=== PATIENT | male | born 1990 | race Caucasian/White ===

== ENCOUNTER 2016-09-12 16:57 | Emergency (ER) | payer BC, OTHER ==
[2016-09-12 19:49] LABS: BASO % 0.7 % (0.0-1.0); EOS # 0.2 K/mm3 (0.0-0.50); EOS % 2.2 % (0.0-3.0); LARGE UNSTAINED CELL # 0.1 K/mm3 (0.0-0.4); LARGE UNSTAINED CELL % 1.1 % (0.0-4.0); LYMPH # 1.9 K/mm3 (1.5-6.5); LYMPH % 25.8 % (24.0-44.0); MEAN CORPUSCULAR HEMOGLOBIN 31.2 pg (27.0-33.0); MEAN CORPUSCULAR HGB CONC 34.9 g/dl (32.0-36.5); MEAN CORPUSCULAR VOLUME 89.4 fl (80.0-96.0); MONO # 0.4 K/mm3 (0.0-0.8); MONO % 5.5 % (0.0-5.0); NEUTROPHILS # 4.5 K/mm3 (1.8-7.7); NEUTROPHILS % 64.6 % (36.0-66.0); PLATELET COUNT, AUTOMATED 172 k/mm3 (150-450); RED CELL DISTRIBUTION WIDTH 12.3 % (11.5-14.5)
[2016-09-12 19:53] LABS: ALBUMIN 3.9 GM/DL (3.2-5.2); ALBUMIN/GLOBULIN RATIO 1.08 (1.00-1.93); ALKALINE PHOSPHATASE 57 U/L (45-117); ALT/SGPT 62 U/L (12-78); ANION GAP 7 MEQ/L (8-16); AST/SGOT 33 U/L (15-37); BILIRUBIN,TOTAL 0.5 MG/DL (0.2-1.0); BLOOD UREA NITROGEN 13 MG/DL (7-18); CALCIUM LEVEL 8.9 MG/DL (8.5-10.1); CARBON DIOXIDE LEVEL 29 MEQ/L (21-32); CHLORIDE LEVEL 106 MEQ/L (98-107); CREATININE FOR GFR 1.03 MG/DL (0.70-1.30); GLOMERULAR FILTRATION RATE > 60.0 (>60); GLUCOSE, FASTING 102 MG/DL (70-105); POTASSIUM SERUM 4.5 MEQ/L (3.5-5.1); SODIUM LEVEL 142 MEQ/L (136-145); TOTAL PROTEIN 7.5 GM/DL (6.4-8.2)
[2016-09-12 20:08] LABS: CONTROL LINE INT CTR LINE PRESENT
--- NOTE | 2016-09-12 20:34 | EDDOCDS ---
Physician Documentation [facility] Name: Marcus Hayes Age: 26 yrs Sex: Male : 1990 Arrival Date: 09/12/2016 Time: 16:57 Bed I5 / M5 Private MD: NO PRIMARY PHYSICIAN, . Disposition: 09/12/16 20:22 Discharged to Home/Self Care. Impression: Contact with and (suspected) exposure to potentially hazardous body fluids. - Condition is Stable. - Discharge Instructions: Body Fluid Exposure Information. - Medication Reconciliation, Local Pharmacy Hours form. - Follow up: Employee Health Office, .; When: Tomorrow; Reason: Further diagnostic work-up, Recheck today's complaints, Continuance of care. - Problem is new. - Symptoms are unchanged. Historical: - Allergies: no known allergies; - Home Meds: 1. none - PMHx: none; - PSHx: none; - Social history: Smoking status: Patient/guardian denies using No barriers to communication noted, The patient speaks fluent Andorran. - Family history: Not pertinent. - : The pt / caregiver states he / she is not on anticoagulants. Home medication list is obtained from the patient. - Exposure Risk Screening:: None identified. - Tetanus status: less than 5 years. Vital Signs: 09/12 16:59 BP 135 / 72; Pulse 106; Resp 18 S; Temp 98.6(O); Pulse Ox 98% on R/A; Weight 136.08 kg gr2 / 300.01 lbs (R); Height 6 ft. 3 in. 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 18:55 CBC with Diff Ordered. EDMS 18:56 Complete Comphrensive Metabolic Ordered. EDMS 18:56 HIV EXPOSED(ONLY WITH PEP SET) Ordered. EDMS 18:56 Hepatitis B Surface Antibody Ordered. EDMS 18:56 Hepatitis B Surface Antigen Ordered. 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 19:16 Financial registration complete. gjb 19:22 [facility] Payment Agreement was scanned into [employer] and attached to record. gjb 19:24 HEPATITIS C ANTIBODY Ordered. EDMS 20:21 CBC with Diff Reviewed. btw 20:21 Complete Comphrensive Metabolic Reviewed. btw 20:21 HIV EXPOSED(ONLY WITH PEP SET) Reviewed. btw Signatures: Dispatcher [employer] EDMS Suzette Desir, RN RN Td Godoy PA PA btw Gissel Soloomn RN RN Sienna NayakRN RN Jayde Sosa Gabriela gjb The chart was reviewed and I authenticate all verbal orders and agree with the evaluation and treatment provided.Corrections: (The following items were deleted from the chart) 19:24 18:56 HEPATITIS C ANTIBODY+LAB ordered. EDMS EDMS Attachments: 19:22 [facility] Payment Agreement gjb MTDD
--- NOTE | 2016-09-12 20:34 | EDDOCDS ---
Nurse's Notes [facility] Name: Marcus Hayes Age: 26 yrs Sex: Male : 1990 Arrival Date: 09/12/2016 Time: 16:57 Bed I5 / M5 Private MD: NO PRIMARY PHYSICIAN, . 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 Alligator forceps was from ENT out pt clinic. Adult Sepsis Screening: The patient does not have new or worsening altered mentation. Patient's respiratory rate is less than 22. Systolic blood pressure is greater than 100. Patient has a qSOFA score of 0- Negative Sepsis Screen. Suicide/Homicide risk assessment- the patient denies having any suicidal and/or homicidal ideations and does not present with any other emotional, behavioral or mental health complaints. 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 Transition of care: patient was not received from another setting of care. 17:11 Acuity: JEN Level 3 dls 17:11 Method Of Arrival: Walkin/Carried/Asstd dls Triage Assessment: 17:15 General: Appears in no apparent distress, obese, well developed, well nourished, dls Behavior is cooperative. Pain: Denies pain. HIV screening NA for this visit Offered previously. Historical: - Allergies: no known allergies; - Home Meds: 1. none - PMHx: none; - PSHx: none; - Social history: Smoking status: Patient/guardian denies using No barriers to communication noted, The patient speaks fluent Kenyan. - Family history: Not pertinent. - : The pt / caregiver states he / she is not on anticoagulants. Home medication list is obtained from the patient. - Exposure Risk Screening:: None identified. - Tetanus status: less than 5 years. Screenin:31 Screening information is obtained from the patient. Fall risk: No risks identified. jc4 Assistance ADL's: requires no assistance with activities of daily living. Abuse/DV Screen: The patient / caregiver reports he/she is: not in a situation that causes fear, pain or injury. Nutritional screening: No deficits noted. Advance Directives: Currently, there is no health care proxy. There is no active DNR order. There is no living will. There is no Power of Public Health Technologist. home support is adequate. Assessment: 17:32 General: Appears in no apparent distress, Behavior is cooperative, pleasant. Pain: jc4 Denies pain. Neurological: Level of Consciousness is awake, alert, Oriented to person, place, time. Respiratory: Airway is patent Respiratory effort is even, unlabored, Respiratory pattern is regular, symmetrical. Derm: Skin is pink, warm & dry. Injury Description: Puncture sustained to dorsal aspect of middle phalanx of right middle finger is superficial, was sustained 30-60 minutes ago. Pt states has thoroughly scrubbed hands with soap and water in [employer] in this facility. 18:32 General: Appears in no apparent distress, Behavior is appropriate for age, cooperative. dsf Pain: Denies pain. Neurological: Level of Consciousness is awake, alert. Cardiovascular: Capillary refill < 3 seconds. Respiratory: Airway is patent Respiratory effort is even, unlabored, Respiratory pattern is regular, symmetrical. Derm: Skin is pink, warm & dry. 20:30 Adult Sepsis Screening: The patient does not have new or worsening altered mentation. dsf Patient's respiratory rate is less than 22. Systolic blood pressure is greater than 100. Patient has a qSOFA score of 0- Negative Sepsis Screen. General: Appears in no apparent distress, Behavior is appropriate for age, cooperative. Neurological: Level of Consciousness is awake, alert. Cardiovascular: Capillary refill < 3 seconds. Respiratory: Airway is patent Respiratory effort is even, unlabored, Respiratory pattern is regular, symmetrical. Derm: Skin is pink, warm & dry. Vital Signs: 16:59 BP 135 / 72; Pulse 106; Resp 18 S; Temp 98.6(O); Pulse Ox 98% on R/A; Weight 136.08 kg gr2 (R); Height 6 ft. 3 in. (190.50 cm) (R); Pain 0/10; 19:34 BP 141 / 95; Pulse 75; Resp 20; Temp 98.9; Pulse Ox 100% ; ajs 20:25 BP 142 / 67; Pulse 107; Resp 18; Temp 99.3; Pulse Ox 97% ; Pain 0/10; ajs 16:59 Body Mass Index 37.50 (136.08 kg, 190.50 cm) gr2 Vitals: 16:59 Log In Time: September 12, 2016 at 16:59. gr2 ED Course: 16:58 Patient visited by Daljit Conner. gr2 16:58 Patient moved to Waiting gr2 16:59 NO PRIMARY PHYSICIAN, . is Private Physician. gr2 17:01 Patient visited by Daljit Conner. gr2 17:01 Patient moved to Pre RCE gr2 17:14 Triage Initiated dls 17:22 Geri Zambrano,RN is Primary Nurse. kcs 17:22 Gissel Solomon, SUNNY is Primary Nurse. kcs 17:22 Patient moved to I5 / M5 kcs 17:30 The patient / caregiver is instructed regarding the plan of care and ED course. jc4 17:31 Patient visited by Gissel Solomon RN. jc4 18:47 Td Brandt PA is PHCP. btw 18:47 Allan Ramirez MD is Attending Physician. btw 18:47 Patient visited by Td Brandt PA. btw 19:19 NOTIFIED NURSING CLEAT LAYER LIZETT OF PT IN ER WITH EXPOSURE, ADVISED PT STATES THE ajs INITIALS ON THE PACKAGE WERE TZ FROM RM 10 OF THE ENT CLINIC. 19:19 CBC with Diff Sent. ajs 19:19 Complete Comphrensive Metabolic Sent. ajs 19:19 HIV EXPOSED(ONLY WITH PEP SET) Sent. ajs 19:19 Hepatitis B Surface Antibody Sent. ajs 19:19 Hepatitis B Surface Antigen Sent. ajs 19:20 Patient visited by Jayde Garcia. ajs 19:22 [facility] Payment Agreement was scanned into [employer] and attached to record. gjb 19:35 Patient visited by Jayde Garcia. ajs 19:35 HEPATITIS C ANTIBODY Sent. ajs 19:49 Patient name changed from Marcus\S\\S\Abigail\S\ to Marcus\S\ \S\Abigail. EDMS 20:21 Employee Health Office, . is Referral Physician. btw 20:25 Patient visited by Jayde Garcia. ajs 20:32 No IV's were initiated during this patient's visit. No procedures done that require dsf assistance. Order Results: Lab Order: CBC with Diff; SPEC'M 02/13/17 19:16 Test: WHITE BLOOD COUNT; Value: 7.0; Range: 4.0-10.0; Units: K/mm3; Status: F Test: RED BLOOD COUNT; Value: 5.16; Range: 4.30-6.10; Units: M/mm3; Status: F Test: HEMOGLOBIN; Value: 16.1; Range: 14.0-18.0; Units: g/dl; Status: F Test: HEMATOCRIT; Value: 46.2; Range: 42.0-52.0; Units: %; Status: F Test: MEAN CORPUSCULAR VOLUME; Value: 89.4; Range: 80.0-96.0; Units: fl; Status: F Test: MEAN CORPUSCULAR HEMOGLOBIN; Value: 31.2; Range: 27.0-33.0; Units: pg; Status: F Test: MEAN CORPUSCULAR HGB CONC; Value: 34.9; Range: 32.0-36.5; Units: g/dl; Status: F Test: RED CELL DISTRIBUTION WIDTH; Value: 12.3; Range: 11.5-14.5; Units: %; Status: F Test: PLATELET COUNT, AUTOMATED; Value: 172; Range: 150-450; Units: k/mm3; Status: F Test: NEUTROPHILS %; Value: 64.6; Range: 36.0-66.0; Units: %; Status: F Test: LYMPH %; Value: 25.8; Range: 24.0-44.0; Units: %; Status: F Test: MONO %; Value: 5.5; Range: 0.0-5.0; Abnormal: Above high normal; Units: %; Status: F Test: EOS %; Value: 2.2; Range: 0.0-3.0; Units: %; Status: F Test: BASO %; Value: 0.7; Range: 0.0-1.0; Units: %; Status: F Test: LARGE UNSTAINED CELL %; Value: 1.1; Range: 0.0-4.0; Units: %; Status: F Test: NEUTROPHILS #; Value: 4.5; Range: 1.8-7.7; Units: K/mm3; Status: F Test: LYMPH #; Value: 1.9; Range: 1.5-6.5; Units: K/mm3; Status: F Test: MONO #; Value: 0.4; Range: 0.0-0.8; Units: K/mm3; Status: F Test: EOS #; Value: 0.2; Range: 0.0-0.50; Units: K/mm3; Status: F Test: BASO #; Value: 0.0; Range: 0.0-0.2; Units: K/mm3; Status: F Test: LARGE UNSTAINED CELL #; Value: 0.1; Range: 0.0-0.4; Units: K/mm3; Status: F Lab Order: Complete Comphrensive Metabolic; SPEC'M 09/12/16 19:16 Test: GLUCOSE, FASTING; Value: 102; Range: 70-105; Units: MG/DL; Status: F Test: BLOOD UREA NITROGEN; Value: 13; Range: 7-18; Units: MG/DL; Status: F Test: CREATININE FOR GFR; Value: 1.03; Range: 0.70-1.30; Units: MG/DL; Status: F Test: GLOMERULAR FILTRATION RATE; Value: > 60.0; Range: >60; Status: F Test: SODIUM LEVEL; Value: 142; Range: 136-145; Units: MEQ/L; Status: F Test: POTASSIUM SERUM; Value: 4.5; Range: 3.5-5.1; Units: MEQ/L; Status: F Test: CHLORIDE LEVEL; Value: 106; Range: 98-107; Units: MEQ/L; Status: F Test: CARBON DIOXIDE LEVEL; Value: 29; Range: 21-32; Units: MEQ/L; Status: F Test: ANION GAP; Value: 7; Range: 8-16; Abnormal: Below low normal; Units: MEQ/L; Status: F Test: CALCIUM LEVEL; Value: 8.9; Range: 8.5-10.1; Units: MG/DL; Status: F Test: AST/SGOT; Value: 33; Range: 15-37; Units: U/L; Status: F Test: ALT/SGPT; Value: 62; Range: 12-78; Units: U/L; Status: F Test: ALKALINE PHOSPHATASE; Value: 57; Range: 45-117; Units: U/L; Status: F Test: BILIRUBIN,TOTAL; Value: 0.5; Range: 0.2-1.0; Units: MG/DL; Status: F Test: TOTAL PROTEIN; Value: 7.5; Range: 6.4-8.2; Units: GM/DL; Status: F Test: ALBUMIN; Value: 3.9; Range: 3.2-5.2; Units: GM/DL; Status: F Test: ALBUMIN/GLOBULIN RATIO; Value: 1.08; Range: 1.00-1.93; Status: F Test Note: ; Units are mL/min/1.73 m2 Chronic Kidney Disease Staging per NKF: Stage I & II GFR >=60 Normal to Mildly Decreased Stage III GFR 30-59 Moderately Decreased Stage IV GFR 15-29 Severely Decreased Stage V GFR <15 Very Little GFR Left ESRD GFR <15 on ACQUISITION EDITOR Lab Order: HIV EXPOSED(ONLY WITH PEP SET); SPEC' 09/12/16 19:17 Test: HIVEXPOSED0; Value: NEGATIVE; Range: NEGATIVE; Status: F Test: HIV EXPOSED PT 1; Value: NEGATIVE; Range: NEGATIVE; Status: F Test Note: ; This test was performed utilizing a immunochromatographic sandwich principle technique. Sensitivity of the assay is 100%. Specificity of the assay is 99.7%. Lab Order: Hepatitis B Surface Antibody; SPEC'M 09/12/16 19:17 Test: HEPATITIS B SURFACE ANTIBODY; Range: POSITIVE; Status: I Lab Order: Hepatitis B Surface Antigen; [facility]' 09/12/16 19:17 Test: HEPATITIS B SURFACE ANTIGEN; Range: NEGATIVE; Status: I Lab Order: HEPATITIS C ANTIBODY; [facility]' 09/12/16 19:17 Test: HEPATITIS C VIRUS YESI INDEX; Range: <0.8; Units: INDEX; Status: I Outcome: 20:22 Discharge ordered by Provider. btw 20:32 Discharge Assessment: Patient awake, alert and oriented x 3. No cognitive and/or dsf functional deficits noted. Patient verbalized understanding of disposition instructions. patient administered narcotics - no. The following High Risk Discharge criteria are identified: None. Discharged to home ambulatory. Condition: stable. Discharge instructions given to patient, Instructed on discharge instructions, follow up and referral plans. Demonstrated understanding of instructions, Pt was receptive of discharge instructions/ teaching. No special radiology studies were completed. Property sent home with patient. 20:32 Patient left the ED. dsf Signatures: Dispatcher [employer] Leonila Mclean RN RN Suzette Dennis RN RN Td Godoy PA PA btw Castle, Jennifer, RN RN jc4 Sienna Elena RN RN Jayde Sosa [place] 2 June [place]antes Corrections: (The following items were deleted from the chart) 19:24 19:19 HEPATITIS C ANTIBODY+LAB sent. raquel RODRIGUEZ MTDD
[2016-09-14 09:52] LABS: HEPATITIS B SURFACE ANTIBODY NEGATIVE (POSITIVE)
--- NOTE | 2016-09-14 21:33 | EDDOCDS ---
Nurse's Notes [facility] Name: Marcus Hayes Age: 26 yrs Sex: Male : 1990 Arrival Date: 09/12/2016 Time: 16:57 Bed I5 / M5 Private MD: NO PRIMARY PHYSICIAN, . 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 Alligator forceps was from ENT out pt clinic. Adult Sepsis Screening: The patient does not have new or worsening altered mentation. Patient's respiratory rate is less than 22. Systolic blood pressure is greater than 100. Patient has a qSOFA score of 0- Negative Sepsis Screen. Suicide/Homicide risk assessment- the patient denies having any suicidal and/or homicidal ideations and does not present with any other emotional, behavioral or mental health complaints. Status: Patient is not a cdl service technician or dependent. Transition of care: patient was not received from another setting of care. 17:11 Acuity: JEN Level 3 dls 17:11 Method Of Arrival: Walkin/Carried/Asstd dls Triage Assessment: 17:15 General: Appears in no apparent distress, obese, well developed, well nourished, dls Behavior is cooperative. Pain: Denies pain. HIV screening NA for this visit Offered previously. Historical: - Allergies: no known allergies; - Home Meds: 1. none - PMHx: none; - PSHx: none; - Social history: Smoking status: Patient/guardian denies using No barriers to communication noted, The patient speaks fluent Macedonian. - Family history: Not pertinent. - : The pt / caregiver states he / she is not on anticoagulants. Home medication list is obtained from the patient. - Exposure Risk Screening:: None identified. - Tetanus status: less than 5 years. Screenin:31 Screening information is obtained from the patient. Fall risk: No risks identified. jc4 Assistance ADL's: requires no assistance with activities of daily living. Abuse/DV Screen: The patient / caregiver reports he/she is: not in a situation that causes fear, pain or injury. Nutritional screening: No deficits noted. Advance Directives: Currently, there is no health care proxy. There is no active DNR order. There is no living will. There is no Power of [employer] Attendant. home support is adequate. Assessment: 17:32 General: Appears in no apparent distress, Behavior is cooperative, pleasant. Pain: jc4 Denies pain. Neurological: Level of Consciousness is awake, alert, Oriented to person, place, time. Respiratory: Airway is patent Respiratory effort is even, unlabored, Respiratory pattern is regular, symmetrical. Derm: Skin is pink, warm & dry. Injury Description: Puncture sustained to dorsal aspect of middle phalanx of right middle finger is superficial, was sustained 30-60 minutes ago. Pt states has thoroughly scrubbed hands with soap and water in [employer] in this facility. 18:32 General: Appears in no apparent distress, Behavior is appropriate for age, cooperative. dsf Pain: Denies pain. Neurological: Level of Consciousness is awake, alert. Cardiovascular: Capillary refill < 3 seconds. Respiratory: Airway is patent Respiratory effort is even, unlabored, Respiratory pattern is regular, symmetrical. Derm: Skin is pink, warm & dry. 20:30 Adult Sepsis Screening: The patient does not have new or worsening altered mentation. dsf Patient's respiratory rate is less than 22. Systolic blood pressure is greater than 100. Patient has a qSOFA score of 0- Negative Sepsis Screen. General: Appears in no apparent distress, Behavior is appropriate for age, cooperative. Neurological: Level of Consciousness is awake, alert. Cardiovascular: Capillary refill < 3 seconds. Respiratory: Airway is patent Respiratory effort is even, unlabored, Respiratory pattern is regular, symmetrical. Derm: Skin is pink, warm & dry. Vital Signs: 16:59 BP 135 / 72; Pulse 106; Resp 18 S; Temp 98.6(O); Pulse Ox 98% on R/A; Weight 136.08 kg gr2 (R); Height 6 ft. 3 in. (190.50 cm) (R); Pain 0/10; 19:34 BP 141 / 95; Pulse 75; Resp 20; Temp 98.9; Pulse Ox 100% ; ajs 20:25 BP 142 / 67; Pulse 107; Resp 18; Temp 99.3; Pulse Ox 97% ; Pain 0/10; ajs 16:59 Body Mass Index 37.50 (136.08 kg, 190.50 cm) gr2 Vitals: 16:59 Log In Time: September 12, 2016 at 16:59. gr2 ED Course: 16:58 Patient visited by Daljit Conner. gr2 16:58 Patient moved to Waiting gr2 16:59 NO PRIMARY PHYSICIAN, . is Private Physician. gr2 17:01 Patient visited by Daljit Conner. gr2 17:01 Patient moved to Pre RCE gr2 17:14 Triage Initiated dls 17:22 Geri Zambrano,RN is Primary Nurse. kcs 17:22 Gissel Solomon, SUNNY is Primary Nurse. kcs 17:22 Patient moved to I5 / M5 kcs 17:30 The patient / caregiver is instructed regarding the plan of care and ED course. jc4 17:31 Patient visited by Gissel Solomon RN. jc4 18:47 Td Brandt PA is PHCP. btw 18:47 Allan Ramirez MD is Attending Physician. btw 18:47 Patient visited by Td Brandt PA. btw 19:19 NOTIFIED NURSING PARTS SALES MANAGER LIZETT OF PT IN ER WITH EXPOSURE, ADVISED PT STATES THE ajs INITIALS ON THE PACKAGE WERE TZ FROM RM 10 OF THE ENT CLINIC. 19:19 CBC with Diff Sent. ajs 19:19 Complete Comphrensive Metabolic Sent. ajs 19:19 HIV EXPOSED(ONLY WITH PEP SET) Sent. ajs 19:19 Hepatitis B Surface Antibody Sent. ajs 19:19 Hepatitis B Surface Antigen Sent. ajs 19:20 Patient visited by Jayde Garcia. ajs 19:22 [facility] Payment Agreement was scanned into [employer] and attached to record. gjb 19:35 Patient visited by Jayde Garcia. ajs 19:35 HEPATITIS C ANTIBODY Sent. ajs 19:49 Patient name changed from Marcus\S\\S\Abigail\S\ to Marcus\S\ \S\Abigail. EDMS 20:21 Employee Health Office, . is Referral Physician. btw 20:25 Patient visited by Jayde Garcia. ajs 20:32 No IV's were initiated during this patient's visit. No procedures done that require dsf assistance. 09/13 09:00 T-Sheet-- Draft Copy was scanned into [employer] and attached to record. gb 09:00 Other: PEP was scanned into [employer] and attached to record. gb Order Results: Lab Order: CBC with Diff; SPEC'M 09/12/16 19:16 Test: WHITE BLOOD COUNT; Value: 7.0; Range: 4.0-10.0; Units: K/mm3; Status: F Test: RED BLOOD COUNT; Value: 5.16; Range: 4.30-6.10; Units: M/mm3; Status: F Test: HEMOGLOBIN; Value: 16.1; Range: 14.0-18.0; Units: g/dl; Status: F Test: HEMATOCRIT; Value: 46.2; Range: 42.0-52.0; Units: %; Status: F Test: MEAN CORPUSCULAR VOLUME; Value: 89.4; Range: 80.0-96.0; Units: fl; Status: F Test: MEAN CORPUSCULAR HEMOGLOBIN; Value: 31.2; Range: 27.0-33.0; Units: pg; Status: F Test: MEAN CORPUSCULAR HGB CONC; Value: 34.9; Range: 32.0-36.5; Units: g/dl; Status: F Test: RED CELL DISTRIBUTION WIDTH; Value: 12.3; Range: 11.5-14.5; Units: %; Status: F Test: PLATELET COUNT, AUTOMATED; Value: 172; Range: 150-450; Units: k/mm3; Status: F Test: NEUTROPHILS %; Value: 64.6; Range: 36.0-66.0; Units: %; Status: F Test: LYMPH %; Value: 25.8; Range: 24.0-44.0; Units: %; Status: F Test: MONO %; Value: 5.5; Range: 0.0-5.0; Abnormal: Above high normal; Units: %; Status: F Test: EOS %; Value: 2.2; Range: 0.0-3.0; Units: %; Status: F Test: BASO %; Value: 0.7; Range: 0.0-1.0; Units: %; Status: F Test: LARGE UNSTAINED CELL %; Value: 1.1; Range: 0.0-4.0; Units: %; Status: F Test: NEUTROPHILS #; Value: 4.5; Range: 1.8-7.7; Units: K/mm3; Status: F Test: LYMPH #; Value: 1.9; Range: 1.5-6.5; Units: K/mm3; Status: F Test: MONO #; Value: 0.4; Range: 0.0-0.8; Units: K/mm3; Status: F Test: EOS #; Value: 0.2; Range: 0.0-0.50; Units: K/mm3; Status: F Test: BASO #; Value: 0.0; Range: 0.0-0.2; Units: K/mm3; Status: F Test: LARGE UNSTAINED CELL #; Value: 0.1; Range: 0.0-0.4; Units: K/mm3; Status: F Lab Order: Complete Comphrensive Metabolic; SPEC'M 09/12/16 19:16 Test: GLUCOSE, FASTING; Value: 102; Range: 70-105; Units: MG/DL; Status: F Test: BLOOD UREA NITROGEN; Value: 13; Range: 7-18; Units: MG/DL; Status: F Test: CREATININE FOR GFR; Value: 1.03; Range: 0.70-1.30; Units: MG/DL; Status: F Test: GLOMERULAR FILTRATION RATE; Value: > 60.0; Range: >60; Status: F Test: SODIUM LEVEL; Value: 142; Range: 136-145; Units: MEQ/L; Status: F Test: POTASSIUM SERUM; Value: 4.5; Range: 3.5-5.1; Units: MEQ/L; Status: F Test: CHLORIDE LEVEL; Value: 106; Range: 98-107; Units: MEQ/L; Status: F Test: CARBON DIOXIDE LEVEL; Value: 29; Range: 21-32; Units: MEQ/L; Status: F Test: ANION GAP; Value: 7; Range: 8-16; Abnormal: Below low normal; Units: MEQ/L; Status: F Test: CALCIUM LEVEL; Value: 8.9; Range: 8.5-10.1; Units: MG/DL; Status: F Test: AST/SGOT; Value: 33; Range: 15-37; Units: U/L; Status: F Test: ALT/SGPT; Value: 62; Range: 12-78; Units: U/L; Status: F Test: ALKALINE PHOSPHATASE; Value: 57; Range: 45-117; Units: U/L; Status: F Test: BILIRUBIN,TOTAL; Value: 0.5; Range: 0.2-1.0; Units: MG/DL; Status: F Test: TOTAL PROTEIN; Value: 7.5; Range: 6.4-8.2; Units: GM/DL; Status: F Test: ALBUMIN; Value: 3.9; Range: 3.2-5.2; Units: GM/DL; Status: F Test: ALBUMIN/GLOBULIN RATIO; Value: 1.08; Range: 1.00-1.93; Status: F Test Note: ; Units are mL/min/1.73 m2 Chronic Kidney Disease Staging per NKF: Stage I & II GFR >=60 Normal to Mildly Decreased Stage III GFR 30-59 Moderately Decreased Stage IV GFR 15-29 Severely Decreased Stage V GFR <15 Very Little GFR Left ESRD GFR <15 on [employer]ENTIFIER [facility]ORSE Lab Order: HIV EXPOSED(ONLY WITH PEP SET); SPEC'M 09/12/16 19:17 Test: HIVEXPOSED0; Value: NEGATIVE; Range: NEGATIVE; Status: F Test: HIV EXPOSED PT 1; Value: NEGATIVE; Range: NEGATIVE; Status: F Test Note: ; This test was performed utilizing a immunochromatographic sandwich principle technique. Sensitivity of the assay is 100%. Specificity of the assay is 99.7%. Lab Order: Hepatitis B Surface Antibody; SPEC'M 09/12/16 19:17 Test: HEPATITIS B SURFACE ANTIBODY; Value: NEGATIVE; Range: POSITIVE; Status: F Lab Order: Hepatitis B Surface Antigen; SPEC'M 09/12/16 19:17 Test: HEPATITIS B SURFACE ANTIGEN; Value: NEGATIVE; Range: NEGATIVE; Status: F Lab Order: HEPATITIS C ANTIBODY; SPEC'M 09/12/16 19:17 Test: HEPATITIS C VIRUS YESI INDEX; Value: 0.0; Range: <0.8; Units: INDEX; Status: F Test Note: ; Negative Not infected with HCV, unless recent infection is suspected or other evidence exists to indicate HCV infection. Outcome: 09/12 20:22 Discharge ordered by Provider. btw 20:32 Discharge Assessment: Patient awake, alert and oriented x 3. No cognitive and/or dsf functional deficits noted. Patient verbalized understanding of disposition instructions. patient administered narcotics - no. The following High Risk Discharge criteria are identified: None. Discharged to home ambulatory. Condition: stable. Discharge instructions given to patient, Instructed on discharge instructions, follow up and referral plans. Demonstrated understanding of instructions, Pt was receptive of discharge instructions/ teaching. No special radiology studies were completed. Property sent home with patient. 20:32 Patient left the ED. dsf Signatures: Dispatcher [employer] EDLeonila Blankenship, RN RN Suzette Dennis RN RN dls Lakisha Calle, Reg Reg gb Td Brandt PA PA btw Castle, Jennifer RN RN meg4 Sienna Elena RN RN dsJayde Villegas Gainslee gr2 June Talamantes Corrections: (The following items were deleted from the chart) 19:24 19:19 HEPATITIS C ANTIBODY+LAB sent. raquel RODRIGUEZ Chart Complete MTDFlavio
--- NOTE | 2016-09-14 21:33 | EDDOCDS ---
Physician Documentation [facility] Name: Marcus Hayes Age: 26 yrs Sex: Male : 1990 Arrival Date: 09/12/2016 Time: 16:57 Bed I5 / M5 Private MD: NO PRIMARY PHYSICIAN, . Disposition: 09/12/16 20:22 Discharged to Home/Self Care. Impression: Contact with and (suspected) exposure to potentially hazardous body fluids. - Condition is Stable. - Discharge Instructions: Body Fluid Exposure Information. - Medication Reconciliation, Local Pharmacy Hours form. - Follow up: Employee Health Office, .; When: Tomorrow; Reason: Further diagnostic work-up, Recheck today's complaints, Continuance of care. - Problem is new. - Symptoms are unchanged. Historical: - Allergies: no known allergies; - Home Meds: 1. none - PMHx: none; - PSHx: none; - Social history: Smoking status: Patient/guardian denies using No barriers to communication noted, The patient speaks fluent Botswanan. - Family history: Not pertinent. - : The pt / caregiver states he / she is not on anticoagulants. Home medication list is obtained from the patient. - Exposure Risk Screening:: None identified. - Tetanus status: less than 5 years. Vital Signs: 09/12 16:59 BP 135 / 72; Pulse 106; Resp 18 S; Temp 98.6(O); Pulse Ox 98% on R/A; Weight 136.08 kg gr2 / 300.01 lbs (R); Height 6 ft. 3 in. (190.50 cm) (R); Pain 0/10; 19:34 BP 141 / 95; Pulse 75; Resp 20; Temp 98.9; Pulse Ox 100% ; ajs 20:25 BP 142 / 67; Pulse 107; Resp 18; Temp 99.3; Pulse Ox 97% ; Pain 0/10; ajs 16:59 Body Mass Index 37.50 (136.08 kg, 190.50 cm) gr2 MDM: 18:54 Consult Employee Health (M-F, 7:30a-4p) or Nursing Roller Coaster Engineer for source patient btw testing ordered. 18:55 CBC with Diff Ordered. EDMS 18:56 Complete Comphrensive Metabolic Ordered. EDMS 18:56 HIV EXPOSED(ONLY WITH PEP SET) Ordered. EDMS 18:56 Hepatitis B Surface Antibody Ordered. EDMS 18:56 Hepatitis B Surface Antigen Ordered. EDMS 19:04 Consult Employee Health (M-F, 7:30a-4p) or Nursing Roller Coaster Engineer for source patient ajs testing complete. 19:16 Financial registration complete. gjb 19:22 [facility] Payment Agreement was scanned into [employer] and attached to record. gjb 19:24 HEPATITIS C ANTIBODY Ordered. EDMS 20:21 CBC with Diff Reviewed. btw 20:21 Complete Comphrensive Metabolic Reviewed. btw 20:21 HIV EXPOSED(ONLY WITH PEP SET) Reviewed. btw 09/13 09:00 T-Sheet-- Draft Copy was scanned into [employer] and attached to record. gb 09:00 Other: PEP was scanned into [employer] and attached to record. gb Signatures: Dispatcher [employer] Suzette Corrales, Lakisha Chadwick RN, Reg Reg Td Arredondo PA PA btw Gissel Solomon RN RN jcSienna LoydRN RN Jayde Sosa Gabriela gjb The chart was reviewed and I authenticate all verbal orders and agree with the evaluation and treatment provided.Corrections: (The following items were deleted from the chart) 09/12 19:24 18:56 HEPATITIS C ANTIBODY+LAB ordered. EDMS EDMS Attachments: 19:22 [facility] Payment Agreement b 09/13 09:00 T-Sheet-- Draft Copy gb Chart Complete MTDD
--- NOTE | 2016-09-14 21:33 | EDDOCDS ---
Physician Documentation [facility] Name: Marcus Hayes Age: 26 yrs Sex: Male : 1990 Arrival Date: 09/12/2016 Time: 16:57 Bed I5 / M5 Private MD: NO PRIMARY PHYSICIAN, . Disposition: 09/12/16 20:22 Discharged to Home/Self Care. Impression: Contact with and (suspected) exposure to potentially hazardous body fluids. - Condition is Stable. - Discharge Instructions: Body Fluid Exposure Information. - Medication Reconciliation, Local Pharmacy Hours form. - Follow up: Employee Health Office, .; When: Tomorrow; Reason: Further diagnostic work-up, Recheck today's complaints, Continuance of care. - Problem is new. - Symptoms are unchanged. Historical: - Allergies: no known allergies; - Home Meds: 1. none - PMHx: none; - PSHx: none; - Social history: Smoking status: Patient/guardian denies using No barriers to communication noted, The patient speaks fluent [place] Rican. - Family history: Not pertinent. - : The pt / caregiver states he / she is not on anticoagulants. Home medication list is obtained from the patient. - Exposure Risk Screening:: None identified. - Tetanus status: less than 5 years. Vital Signs: 09/12 16:59 BP 135 / 72; Pulse 106; Resp 18 S; Temp 98.6(O); Pulse Ox 98% on R/A; Weight 136.08 kg gr2 / 300.01 lbs (R); Height 6 ft. 3 in. (190.50 cm) (R); Pain 0/10; 19:34 BP 141 / 95; Pulse 75; Resp 20; Temp 98.9; Pulse Ox 100% ; ajs 20:25 BP 142 / 67; Pulse 107; Resp 18; Temp 99.3; Pulse Ox 97% ; Pain 0/10; ajs 16:59 Body Mass Index 37.50 (136.08 kg, 190.50 cm) gr2 MDM: 18:54 Consult Employee Health (M-F, 7:30a-4p) or Nursing Heel Sewer for source patient btw testing ordered. 18:55 CBC with Diff Ordered. EDMS 18:56 Complete Comphrensive Metabolic Ordered. EDMS 18:56 HIV EXPOSED(ONLY WITH PEP SET) Ordered. EDMS 18:56 Hepatitis B Surface Antibody Ordered. EDMS 18:56 Hepatitis B Surface Antigen Ordered. EDMS 19:04 Consult Employee Health (M-F, 7:30a-4p) or Nursing Heel Sewer for source patient ajs testing complete. 19:16 Financial registration complete. gjb 19:22 [facility] Payment Agreement was scanned into [employer] and attached to record. gjb 19:24 HEPATITIS C ANTIBODY Ordered. EDMS 20:21 CBC with Diff Reviewed. btw 20:21 Complete Comphrensive Metabolic Reviewed. btw 20:21 HIV EXPOSED(ONLY WITH PEP SET) Reviewed. btw 09/13 09:00 T-Sheet-- Draft Copy was scanned into [employer] and attached to record. gb 09:00 Other: PEP was scanned into [employer] and attached to record. gb Signatures: Dispatcher [employer] Suzette Corrales, Lakisha Chadwick RN, Reg Reg Td Arredondo PA PA btw Gissel Solomon RN RN jcSienna LoydRN RN Jayde Sosa Gabriela gjb The chart was reviewed and I authenticate all verbal orders and agree with the evaluation and treatment provided.Corrections: (The following items were deleted from the chart) 09/12 19:24 18:56 HEPATITIS C ANTIBODY+LAB ordered. EDMS EDMS Attachments: 19:22 [facility] Payment Agreement b 09/13 09:00 T-Sheet-- Draft Copy gb Chart Complete MTDD
== END 2016-09-12 20:32 | disposition home or self-care (01) ==
LOC: M ED 16:57
DX: Z77.21 Contact with and (suspected) exposure to potentially hazardous body fluids (principal); S61.232A Puncture wound without foreign body of right middle finger without damage to nail, initial encounter; W46.0XXA Contact with hypodermic needle, initial encounter; Y92.89 Other specified places as the place of occurrence of the external cause; Y93.89 Activity, other specified; Y99.0 Civilian activity done for income or pay

== ENCOUNTER → 2022-11-10 | Outpatient (REF) | payer OTHER, BC ==
[2022-11-10 17:43] LABS: BASO # 0.1 10^3/uL (0.0-0.2); BASO % 0.9 % (0.0-1.0); EOS # 0.2 10^3/uL (0.0-0.5); EOS % 2.9 % (0.0-3.0); HEMATOCRIT 43.5 % (42.0-52.0); HEMOGLOBIN 14.9 g/dl (13.5-17.5); LYMPH # 1.8 10^3/uL (1.5-5.0); LYMPH % 31.4 % (24.0-44.0); MEAN CORPUSCULAR HEMOGLOBIN 31.6 pg (27.0-33.0); MEAN CORPUSCULAR HGB CONC 34.3 g/dl (32.0-36.5); MEAN CORPUSCULAR VOLUME 92.2 fl (80.0-96.0); MONO # 0.5 10^3/uL (0.0-0.8); MONO % 9.1 % (2.0-8.0); NEUTROPHILS # 3.1 10^3/uL (1.5-8.5); NEUTROPHILS % 55.3 % (36.0-66.0); PLATELET COUNT, AUTOMATED 168 10^3/uL (150-450); RED BLOOD COUNT 4.72 10^6/uL (4.30-6.10); WHITE BLOOD COUNT 5.6 10^3/uL (4.0-10.0)
[2022-11-10 17:55] LABS: HEMOGLOBIN A1c 4.6 % (4.0-6.0)
[2022-11-10 18:06] LABS: ALBUMIN 3.5 G/DL (3.2-5.2); ALKALINE PHOSPHATASE 62 U/L (46-116); ALT/SGPT 30 U/L (7.0-40); AST/SGOT 12 U/L (<34); BILIRUBIN,TOTAL 0.7 MG/DL (0.3-1.2); BLOOD UREA NITROGEN 15 MG/DL (9-23); CALCIUM LEVEL 8.9 MG/DL (8.5-10.1); CARBON DIOXIDE LEVEL 27 MMOL/L (20-31); CHLORIDE LEVEL 107 MMOL/L (98-107); CHOLESTEROL LEVEL 170 MG/DL (<200); CHOLESTEROL RISK RATIO 4.42 (<5); CREATININE FOR GFR 1.02 MG/DL (0.70-1.30); GLOMERULAR FILTRATION RATE > 60.0 (>60); GLUCOSE, FASTING 86 MG/DL (60-100); HDL CHOLESTEROL 38.4 MG/DL (>40); NON-HDL-C 131.6 MG/DL; POTASSIUM SERUM 3.7 MMOL/L (3.5-5.1); SODIUM LEVEL 139 MMOL/L (136-145); TOTAL PROTEIN 6.7 G/DL (5.7-8.2); TRIGLYCERIDES LEVEL 168 MG/DL (<150)
[2022-11-10 18:07] LABS: TOTAL 25(OH) VITAMIN D 23.8 NG/ML (20.0-100.0)
[2022-11-10 18:08] LABS: THYROID STIMULATING HORMONE 1.278 uIU/ML (0.55-4.78)
== END ==
LOC: M LAB REF 16:46
PROVIDERS: ATTEND Physician Assistant
DX: Z68.39 Body mass index [BMI] 39.0-39.9, adult (principal); Z13.228 Encounter for screening for other metabolic disorders

== ENCOUNTER → 2023-01-03 | Outpatient (REF) | payer OTHER, BC | LOC: M LAB REF 17:48 | PROVIDERS: ATTEND Nurse Practitioner Family | DX: Z68.39 Body mass index [BMI] 39.0-39.9, adult (principal) ==

== ENCOUNTER 2023-05-11 08:31 | Emergency (ER) | payer OTHER, BC ==
[~2023-05-11] VITALS: Ht 188 cm; Wt 139.6 kg
[2023-05-11 08:33] VITALS: TEMP 97.8
[2023-05-11] MEDS ORDERED: PHEN30CA21 (08:47)
[2023-05-11] MEDS ORDERED: BUPR150T12 (08:47)
[2023-05-11] MEDS ORDERED: methocarbamoL 500 MG TAB PO ONE (11:45)
[2023-05-11] MEDS ORDERED: KETOROLAC 60MG 2ML VIAL IM ONE (11:45)
[2023-05-11] MEDS ORDERED: NAPR-837 PO (12:45)
[2023-05-11] MEDS ORDERED: METH-1164 PO (12:45)
[2023-05-11] MEDS ORDERED: LIDO5DIS41 TD (12:45)
[2023-05-11 13:00] VITALS: BP 126/72; O2SAT 99
== END 2023-05-11 13:01 | disposition home or self-care (01) ==
LOC: M ED 08:31
DX: M62.830 Muscle spasm of back (principal); M54.9 Dorsalgia, unspecified; W18.30XA Fall on same level, unspecified, initial encounter; F32.A Depression, unspecified; F17.200 Nicotine dependence, unspecified, uncomplicated
CPT/HCPCS: 72072; 72110; 96372; 99283; J1885

== ENCOUNTER → 2023-08-09 | Outpatient (CLI) | payer BC ==
[~2023-08-09] MED LIST: BUPR150T12; LIDO5DIS41 TD; METH-1164 PO; NAPR-837 PO; PHEN30CA21
== END ==
LOC: M SLEEP HO 10:39
PROVIDERS: ATTEND Nurse Practitioner Family
DX: G47.33 Obstructive sleep apnea (adult) (pediatric) (principal); R40.0 Somnolence

== ENCOUNTER → 2023-11-03 | Outpatient (REF) | payer BC ==
[2023-11-03 14:16] LABS: HEMOGLOBIN A1c 4.6 % (4.0-6.0)
[2023-11-03 14:22] LABS: BLOOD UREA NITROGEN 13 MG/DL (9-23); CALCIUM LEVEL 8.5 MG/DL (8.5-10.1); CARBON DIOXIDE LEVEL 28 MMOL/L (20-31); CHLORIDE LEVEL 105 MMOL/L (98-107); CHOLESTEROL LEVEL 164 MG/DL (<200); CHOLESTEROL RISK RATIO 4.11 (<5); CREATININE FOR GFR 0.97 MG/DL (0.70-1.30); GLOMERULAR FILTRATION RATE > 60.0 (>60); GLUCOSE, FASTING 81 MG/DL (60-100); HDL CHOLESTEROL 39.9 MG/DL (>40); LDL CHOLESTEROL 99.5 MG/DL (<100); NON-HDL-C 124.1 MG/DL; POTASSIUM SERUM 4.7 MMOL/L (3.5-5.1); SODIUM LEVEL 140 MMOL/L (136-145); THYROID STIMULATING HORMONE 1.398 uIU/ML (0.55-4.78); TRIGLYCERIDES LEVEL 123 MG/DL (<150)
[2023-11-04 17:09] LABS: C-PEPTIDE 4.7 ng/mL (1.1-4.4); TESTOSTERONE FREE (DIRECT) 12.8 pg/mL (8.7-25.1)
== END ==
LOC: M LAB REF 11:32
PROVIDERS: ATTEND Nurse Practitioner Family
DX: Z68.39 Body mass index [BMI] 39.0-39.9, adult (principal); K59.00 Constipation, unspecified; R53.83 Other fatigue; E66.9 Obesity, unspecified

== ENCOUNTER → 2025-05-08 | Outpatient (REF) | payer BC ==
[~2025-05-08] MED LIST changes: +LIDO1ADH93 TD; -LIDO5DIS41 TD
[2025-05-08 13:52] LABS: CALCIUM LEVEL 8.8 MG/DL (8.5-10.1); CARBON DIOXIDE LEVEL 25.0 MMOL/L (20-31); CHLORIDE LEVEL 104.0 MMOL/L (98-107); CHOLESTEROL LEVEL 219.0 MG/DL (<200); CHOLESTEROL RISK RATIO 4.95 (<5); CREATININE FOR GFR 1.11 MG/DL (0.70-1.30); GLOMERULAR FILTRATION RATE 88.8 (>60); LDL CHOLESTEROL 154.6 MG/DL (<100); NON-HDL-C 174.8 MG/DL; POTASSIUM SERUM 4.7 MMOL/L (3.5-5.1); SODIUM LEVEL 139.0 MMOL/L (136-145); TRIGLYCERIDES LEVEL 101.0 MG/DL (<150)
[2025-05-08 13:54] LABS: BASO # 0.1 10^3/uL (0.0-0.2); BASO % 1.4 % (0.0-1.0); EOS # 0.2 10^3/uL (0.0-0.5); EOS % 4.6 % (0.0-3.0); LYMPH # 1.7 10^3/uL (1.5-5.0); LYMPH % 33.0 % (24.0-44.0); MONO # 0.4 10^3/uL (0.0-0.8); MONO % 8.5 % (2.0-8.0); NEUTROPHILS # 2.7 10^3/uL (1.5-8.5); NEUTROPHILS % 52.1 % (36.0-66.0); PLATELET COUNT, AUTOMATED 182 10^3/uL (150-450)
[2025-05-08 14:19] LABS: ESTIMATED AVERAGE GLUCOSE 91.0 MG/DL (60-110)
== END ==
LOC: M LAB REF 12:27
PROVIDERS: ATTEND Nurse Practitioner Family
DX: E66.813 Obesity, class 3 (principal); R53.83 Other fatigue